=== PATIENT | male | born 1960 | race Hispanic/Latino ===

== ENCOUNTER 2017-05-19 19:01 | Inpatient (IN) | payer OTHER ==
--- NOTE | 2017-05-19 19:25 | C.PDOC ---
History Of Present Illness The patient presents to the ED requesting heroin and alcohol detox. Patient states his last heroin use was this morning and last drink was at around 1700 today. Patient denies suicidal/homicidal ideation at this time. Time Seen by Provider: 05/19/17 19:24 Chief Complaint (Nursing): Substance Abuse History Per: Patient History/Exam Limitations: no limitations Onset/Duration Of Symptoms: Hrs Current Symptoms Are (Timing): Still Present Suicide/Self Injury Attempted (Context): None Modifying Factor(s): Alcohol, Narcotics (heroin) Severity: Mild Pain Scale Rating Of: 2 Associated Symptoms: denies: Suicidal Thoughts, Suicidal Plan Involuntary Hold By: None Recent travel outside of the [place]: No Additional History Per: Patient Past Medical History Reviewed: Historical Data, Nursing Documentation, Vital Signs Vital Signs: Last Vital Signs Temp 97.6 F 05/19/17 19:17 Pulse 98 H 05/19/17 19:17 Resp 16 05/19/17 19:17 BP 117/83 05/19/17 19:17 Pulse Ox 97 05/19/17 19:51 - Medical History PMH: Anxiety, Back Problems Surgical History: No Surg Hx Family History: States: Unknown Family Hx - Social History Hx Tobacco Use: Yes Hx Alcohol Use: Yes Hx Substance Use: Yes (Heroin, Methadone) - Immunization History Hx Tetanus Toxoid Vaccination: Yes Hx Influenza Vaccination: No Hx Pneumococcal Vaccination: No Review Of Systems Constitutional: Negative for: Fever, Chills Cardiovascular: Negative for: Chest Pain, Palpitations Respiratory: Negative for: Shortness of Breath Gastrointestinal: Negative for: Nausea, Vomiting, Abdominal Pain Skin: Negative for: Rash, Lesions, Jaundice, Bruising Neurological: Negative for: Weakness, Numbness Psych: Negative for: Suicidal ideation Physical Exam - Physical Exam Appears: Non-toxic, No Acute Distress Skin: Warm, Dry Head: Normacephalic Eye(s): bilateral: Normal Inspection Oral Mucosa: Moist Neck: Supple Chest: Symmetrical, No Deformity, No Tenderness Cardiovascular: Rhythm Regular, No Murmur Respiratory: No Rales, No Rhonchi, No Wheezing Back: Normal Inspection Extremity: Normal ROM Extremity: Bilateral: Atraumatic Neurological/Psych: Oriented x3 Gait: Steady ED Course And Treatment - Laboratory Results Result Diagrams: 05/19/17 19:34 05/19/17 19:34 O2 Sat by Pulse Oximetry: 97 (on RA) Pulse Ox Interpretation: Normal Progress Note: Bloodwork and urinalysis ordered. Disposition Discussed With Dr.: Maura Hackett Comment: accepted the pt on his service and took over the care at 9:07 PM Doctor Will See Patient In The: Hospital Counseled Patient/Family Regarding: Studies Performed, Diagnosis - Disposition Disposition: HOSPITALIZED Disposition Time: 19:24 Condition: FAIR Forms: [facility] (Surinamese) - POA Present On Arrival: None - Clinical Impression Clinical Impression: Alcohol abuse, Drug dependence - Scribe Statement The provider has reviewed the documentation as recorded by the Scribe (Brissa Feng) Provider Attestation: All medical record entries made by the Scribe were at my direction and personally dictated by me. I have reviewed the chart and agree that the record accurately reflects my personal performance of the history, physical exam, medical decision making, and the department course for this patient. I have also personally directed, reviewed, and agree with the discharge instructions and disposition. Decision To Admit - Pt Status Changed To: Hospital Disposition Of: Inpatient - Admit Certification Admit to Inpatient:: After my assessment, the patient will require hospitalization for at least two midnights. This is because of the severity of symptoms shown, intensity of services needed, and/or the medical risk in this patient being treated as an outpatient. - InPatient: Physician Admission Certification: I certify that this patient requires 2 or more midnights of care for the following reason:: After my assessment, the patient will require hospitalization for at least two midnights. This is because of the severity of symptoms shown, intensity of services needed, and/or the medical risk in this patient being treated as an outpatient. - . Bed Request Type: Detox Admitting Physician: Maura Hackett Patient Diagnosis: Alcohol abuse, Drug dependence
[2017-05-19 19:48] LABS: BASO # 0.1 K/uL (0.0-0.2); BASO % 1.1 % (0.0-2.0); EOS # 0.5 K/uL (0.0-0.7); EOS % 3.6 % (0.0-4.0); HEMATOCRIT 42.9 % (35.0-51.0); LYMPH % 30.8 % (20.0-40.0); MEAN CORPUSCULAR HEMOGLOBIN 33.3 pg (27.0-31.0); MEAN CORPUSCULAR HGB CONC 33.3 g/dL (33.0-37.0); MEAN PLATELET VOLUME 8.8 fL (7.2-11.7); MONO # 1.1 K/uL (0.0-0.8); MONO % 8.6 % (0.0-10.0); RED CELL DISTRIBUTION WIDTH 13.4 % (11.5-14.5); WHITE BLOOD COUNT 12.9 K/uL (4.8-10.8)
[2017-05-19 19:50] LABS: ALB/GLOB RATIO 1.5 (1.0-2.1); ALCOHOL SERUM 78 mg/dl (0-10); ALKALINE PHOSPHATASE 56 U/L (38-126); ALT/SGPT 235 U/L (21-72); AST/SGOT 122 U/L (17-59); BILIRUBIN,TOTAL 0.6 mg/dL (0.2-1.3); BLOOD UREA NITROGEN 9 mg/dL (9-20); CALCIUM 8.2 mg/dl (8.6-10.4); CARBON DIOXIDE 29 mmol/L (22-30); CHLORIDE 104 mmol/L (98-107); GFR AFRICAN-AMERICAN > 60; GLUCOSE,RANDOM 131 mg/dL (75-110); SODIUM 142 mmol/L (132-148); TOTAL PROTEIN 7.4 g/dL (6.3-8.3)
[2017-05-19 20:29] LABS: RBC URINE < 1 /hpf (0-3); URINE BILIRUBIN NEGATIVE (NEGATIVE); URINE BLOOD NEGATIVE (NEGATIVE); URINE COLOR Yellow (YELLOW); URINE GLUCOSE (UA) NORMAL (Normal); URINE KETONE NEGATIVE (NEGATIVE); URINE LEUKOCYTE ESTERASE NEG Leu/uL (Negative); URINE PROTEIN NEGATIVE (NEGATIVE); URINE UROBILINOGEN NORMAL mg/dL (0.2-1.0); WBC URINE 1 /hpf (0-5)
[2017-05-19] MEDS ORDERED: Aluminum Hydroxide/Magnesium Hydroxide Susp (30 mL) PO PRN (21:33)
[2017-05-20] MEDS: Multiple Vitamins Tab PO SCH (09:27)
--- NOTE | 2017-05-20 14:09 | PCM.PSYCH ---
Initial Psychiatric Evaluation - Initial Psychiatric Evaluation Type of Admission: Voluntary Legal Status: Capacity Chief Complaint (in patient's own words): "I had to stop this" History of Present Illness and Precipitating Events: The patient is seen, chart reviewed and case discussed. This is a 56-year-old male, single with no child, unemployed last 7 months, he gets unemployment money at this point. The patient drinks 2 packs of beer and a pint of liquor for the last 4 years. Denies DTs or seizures He also uses up to 5 bags of heroin "on and off" intranasally for the last 32 years. He says he tried methadone in the past and recently to come off he took some "sips of methadone" He was on 90 mg of methadone at [facility] up until 4 years ago. He was using cocaine but stopped recently Smokes half pack per day cigarettes Denies all other drugs. He was in detox 7 times and rehabilitation 2 times. Past psych history: He states he had anxiety all his life and still suffers from anxiety. No admissions or suicide attempts Family psych history: Mother had anxiety and depression Medical history: Denies Current Medications: Active Medications Generic Name Dose Route Start Last Admin Trade Name Freq PRN Reason Stop Dose Admin Acetaminophen 650 mg 05/19/17 21:33 Tylenol 325mg Tab PO Q4H PRN Fever greater than 101 F Al Hydrox/Mg Hydrox/Simethicone 30 ml 05/19/17 21:33 Maalox 30 Ml PO TID PRN Indigestion / Heartburn Clonidine HCl 0.1 mg 05/19/17 21:33 05/19/17 22:56 Catapres PO 0.1 mg Q8 PRN Administration COWS Score More or Equal to 5 Folic Acid 1 mg 05/20/17 10:00 05/20/17 09:27 Folic Acid PO Not Given DAILY KALLI Gabapentin 100 mg 05/20/17 10:00 05/20/17 09:28 Neurontin PO Not Given TID KALLI Hydroxyzine HCl 25 mg 05/19/17 22:26 05/19/17 22:57 Atarax PO 25 mg Q6 PRN Administration Anxiety Loperamide HCl 2 mg 05/19/17 21:33 Imodium PO Q8 PRN Diarrhea Lorazepam 1 mg 05/19/17 21:45 05/20/17 12:35 Ativan PO 05/24/17 21:44 1 mg Q4 KALLI Administration Taper Lorazepam 1 mg 05/19/17 21:34 Ativan PO Q4H PRN Symptoms of alcohol withdrawl Multivitamins 1 tab 05/20/17 10:00 05/20/17 09:27 Hexavitamin PO Not Given DAILY KALLI Ondansetron HCl 4 mg 05/19/17 21:33 Zofran Tab PO Q8 PRN Nausea/Vomiting Thiamine HCl 100 mg 05/20/17 10:00 05/20/17 09:28 Vitamin B1 Tab PO Not Given DAILY KALLI Trazodone HCl 50 mg 05/19/17 21:34 05/19/17 22:57 Desyrel PO 50 mg HS PRN Administration Insomnia Past Psychiatric History - Past Psychiatric History Previous Treatment History: None Pertinent Medical Hx (Current Medical&Sleep Prob, Allergies): Allergies Allergy/AdvReac Type Severity Reaction Status Date / Time No Known Allergies Allergy Verified 05/19/17 19:15 No Known Home Med 05/19/17 Review of Systems - Neurological Neurological: UNREMARKABLE - Psychiatric Psychiatric: Abnormal Sleep Pattern, Anxiety. absent: Depression, Difficulty Concentrating, Hallucinations, Suicidal Ideation Mental Status Examination - Personal Presentation Personal Presentation: Looks stated age - Affect Affect: Constricted - Motor Activity Motor Activity: Calm - Reliability in Providing Information Reliability in Providing Information: Good - Speech Speech: Organized - Mood Mood: Anxious - Formal Thought Process Formal Thought Process: No Impairment - Cognitive Functions Orientation: Person, Place, Situation, Time Attention/Concentration: Attentive Estimate of Intelligence: Average Judgement: Intact, as evidence by: Insight regarding need for hospitalization Memory: Recent intact, as evidence by: Ability to recall events of the day, Remote intact, as evidenced by: Abilit to recall sig. life events - Risk Risk: Withdrawal, Diminished functioning - Strength & Assets Inventory Strength & Assets Inventory: Cooperative DSM 5 DX - DSM 5 DSM 5 Diagnosis: Opioid withdrawal Opioid use d/o - severe Alcohol use d/o -severe Alcohol withdrawal Cocaine use d/o- in early remission Tobacco use d/o - moderate Anxiety d/o - unspecified - Recommended/Plan of Treatment Treatment Recommendations and Plan of Treatment: Ativan detox due to elevated LFTs Subutex detox if he scores higher Gabapentin for augmentation As needed medications Attend groups and activities Supportive therapy and psychoeducation [facility] for abstinence CBT for relapse prevention Encourage MAT Refer to rehab or IOP, and self-help groups Smoking cessation with [facility] Nicotine patch 34 min Projected ELOS: 5 days Prognosis: good w treatment - Smoking Cessation Smoking Cessation Initiated: Yes
--- NOTE | 2017-05-20 14:58 | PCM.BM ---
<JuarezNardaJessie F - Last Filed: 05/20/17 14:54> Treatment Plan Problems - Problems identified on initial assessmt Risk for alcohol use disorder Date Initiated: 05/19/17 Time Initiated: 22:00 Assessment reference: NA Status: Active Risk for opioid use disorder Date Initiated: 05/19/17 Time Initiated: 22:00 Assessment reference: NA Status: Active Treatment assets and liabiliti Patient Assests: self-reliant, ADL independent, negotiates basic needs, cognitively intact Patient Liabilities: financial problems, relationship conflicts, substance abuse - Milieu Protocol Maintain good personal hygiene: daily Encourage regular showers, daily Remind patient to perform daily oral care, daily Assist patient to perform ADL's, every shift Encourage regular showers, every shift Remind patient to perform daily oral care, every shift Assist patient to perform ADL's Maintain personal safety: daily Educate patient to report safety concerns to staff, daily Monitor environment for contraband/sharps, every shift Educate patient to report safety concerns to staff, every shift Monitor environment for contraband/sharps Medication safety: Monitor for expected outcome, potential side effects: daily, every shift, Assess barriers to learning: daily, every shift, Assess readiness for medication education: daily, every shift Milieu Narrative: Ativan detox due to elevated LFTs Subutex detox if he scores higher Gabapentin for augmentation As needed medications Attend groups and activities Supportive therapy and psychoeducation [facility] for abstinence CBT for relapse prevention Encourage MAT Refer to rehab or IOP, and self-help groups Smoking cessation with [facility] Nicotine patch 34 min Family Contact Family involvement: Famliy/SO not involved Discharge/Continuing Care - Treatment Team Participation Patient/Family/SO Statement: Ativan detox due to elevated LFTs Subutex detox if he scores higher Gabapentin for augmentation As needed medications Attend groups and activities Supportive therapy and psychoeducation [facility] for abstinence CBT for relapse prevention Encourage MAT Refer to rehab or IOP, and self-help groups Smoking cessation with [facility] Nicotine patch 34 min <Marivel Guzman - Last Filed: 05/21/17 10:32> - Diagnosis (1) Alcohol use disorder, severe, dependence Status: Acute Interventions: 05/21/17 10:32 * Assess 7x/week regarding severity of withdrawal * Educate regarding risks, benefits, side effects and alternatives of medications * Use Motivational Interviewing for abstinence * Use CBT for relapse prevention * Medication management for withdrawal symptoms * Encourage medication assisted treatment *
[2017-05-20 20:58] VITALS: RESP 18
[2017-05-21 09:53] VITALS: BP 121/91; PULSE 108; TEMP 97.9; O2SAT 98
--- NOTE | 2017-05-21 10:08 | PCM.PYCHDC ---
Mental Status Examination - Mental Status Examination Orientation: Person, Place, Situation, Time Memory: Intact Mood: Anxious Affect: Constricted Speech: Appropriate Attention: Poor Concentration: Poor Association: WNL Fund of Knowledge: WNL Formal Thought Process: No Impairment Suicidal Ideation: No Current Homicidal Ideation?: No Discharge Summary - Discharge Note Consultations:: List each consultation separately and include: 1. Reason for request. 2. Findings. 3. Follow-up Summary of Hospital Course include:: 1. Description of specific treatment plan utilized for patients during their course of treatmen. 2. Summarize the time- course for resolution of acute symptoms and/or regressed behaviors. 3. Describe issues identified and worked on during hospitalization. 4. Describe medication utilized. 5. Describe medical problems identified and treated. 6. Reassessment of suicide risk Summary of Hospital Course: The patient is seen, chart reviewed and case discussed. On admission: This is a 56-year-old male, single with no child, unemployed last 7 months, he gets unemployment money at this point. The patient drinks 2 packs of beer and a pint of liquor for the last 4 years. Denies DTs or seizures He also uses up to 5 bags of heroin "on and off" intranasally for the last 32 years. He says he tried methadone in the past and recently to come off he took some "sips of methadone" He was on 90 mg of methadone at [facility] up until 4 years ago. He was using cocaine but stopped recently Smokes half pack per day cigarettes Denies all other drugs. He was in detox 7 times and rehabilitation 2 times. Past psych history: He states he had anxiety all his life and still suffers from anxiety. No admissions or suicide attempts Family psych history: Mother had anxiety and depression Medical history: Denies Hospital course: The pt was admitted and started on treatment with psychotherapy, support, psychoeducation and medications. VT and CBT used briefly. All the risks and benefits of medications are discussed and the patient understood and agreed. The pt was found to be smoking the next morning and discharged administratively. He first denied it but then his room-mate who smoked together admitted. They even pried open the room window a little. He is given recommendations about how to stay clean and go to [facility] (or other rehabs) He refused prescriptions (and doesn't have insurance) - Final Diagnosis (DSM 5) Condition upon Discharge: FAIR DSM 5: Opioid withdrawal Opioid use d/o - severe Alcohol use d/o -severe Alcohol withdrawal Cocaine use d/o- in early remission Tobacco use d/o - moderate Anxiety d/o - unspecified Disposition: HOME/ ROUTINE Follow-up Treatment Plan: Follow after care plan as discussed. Use relapse prevention skills Return to ER or call 911 if suicidal, homicidal or symptoms relapse. Stay away from stress, alcohol and drugs. See primary doctor regularly and get labs.
[2017-05-21] MEDS: Multiple Vitamins Tab PO SCH (10:25)
== END 2017-05-21 10:35 | disposition home or self-care (01) | DRG 895 ==
LOC: C.ER 19:01 → C.7D 21:06
PROVIDERS: ADMIT Psychiatry & Neurology Psychiatry; ATTEND Psychiatry & Neurology Psychiatry
PROC: HZ52ZZZ Individual Psychotherapy for Substance Abuse Treatment, Cognitive-Behavioral (ICD-10-PCS; principal; 2017-05-19)
PROC: HZ59ZZZ Individual Psychotherapy for Substance Abuse Treatment, Supportive (ICD-10-PCS; 2017-05-19)
PROC: HZ56ZZZ Individual Psychotherapy for Substance Abuse Treatment, Psychoeducation (ICD-10-PCS; 2017-05-19)
PROC: HZ2ZZZZ Detoxification Services for Substance Abuse Treatment (ICD-10-PCS; 2017-05-19)
DX: F11.23 Opioid dependence with withdrawal (principal); F10.230 Alcohol dependence with withdrawal, uncomplicated; F17.210 Nicotine dependence, cigarettes, uncomplicated; F41.9 Anxiety disorder, unspecified; F14.11 Cocaine abuse, in remission

== ENCOUNTER 2018-03-09 20:41 | Observation (INO) | payer OTHER ==
[2018-03-09 21:24] VITALS: BMI 23.6
[2018-03-09] MEDS ORDERED: Sodium Chloride 0.9% 1,000 ML IV ONE (22:10)
--- NOTE | 2018-03-09 22:20 | C.PDOC ---
History Of Present Illness 57 year old male presents to the ED c/o right flank pain that started tonight. Patient states his pain is persistent and does not change with movement or deep breathing. Patient denies fever, chills, nausea, vomit, diarrhea, dysuria, hematuria. Chief Complaint (Nursing): Abdominal Pain History Per: Patient History/Exam Limitations: no limitations Onset/Duration Of Symptoms: Hrs Current Symptoms Are (Timing): Still Present Location Of Pain/Discomfort: Diffuse Radiation Of Pain To:: Flank Quality Of Discomfort: "Pain" Associated Symptoms: denies: Nausea, Vomiting, Diarrhea, Urinary Symptoms Exacerbating Factors: None Alleviating Factors: None Recent travel outside of the [place]: No Additional History Per: Patient Past Medical History Reviewed: Historical Data, Nursing Documentation, Vital Signs Vital Signs: Last Vital Signs Temp 97.7 F 03/09/18 20:56 Pulse 99 H 03/09/18 20:56 Resp 16 03/09/18 20:56 BP 131/85 03/09/18 20:56 Pulse Ox 98 03/09/18 20:56 - Medical History PMH: Anxiety, Back Problems Denies: Diabetes, Hepatitis, HIV, HTN, Seizures, Sexually Transmitted Disease Surgical History: No Surg Hx - [facility] DETOXIFICATION SERVICES FOR SUBSTANCE ABUSE TREATMENT (05/19/17) INDIV PSYCHOTHERAPY FOR SUBSTANCE ABUSE TREATMENT, SUPPORT (05/19/17) INDIV PSYCHOTHERAPY FOR SUBSTANCE ABUSE, COGNITIV BEHAVIORAL (05/19/17) INDIV PSYCHOTHERAPY FOR SUBSTANCE ABUSE, PSYCHOEDUCATION (05/19/17) Family History: States: Unknown Family Hx - Social History Hx Tobacco Use: Yes Hx Alcohol Use: Yes Hx Substance Use: Yes - Immunization History Hx Tetanus Toxoid Vaccination: Yes Hx Influenza Vaccination: No Hx Pneumococcal Vaccination: No Review Of Systems Constitutional: Negative for: Fever, Chills Cardiovascular: Negative for: Chest Pain Respiratory: Negative for: Shortness of Breath Gastrointestinal: Negative for: Nausea, Vomiting Genitourinary: Negative for: Dysuria, Hematuria Musculoskeletal: Positive for: Back Pain Neurological: Negative for: Weakness, Numbness Physical Exam - Physical Exam Appears: Non-toxic, No Acute Distress Skin: Normal Color, Warm, Dry Head: Atraumatic, Normacephalic Eye(s): bilateral: Normal Inspection Oral Mucosa: Moist Neck: Normal ROM, Supple Chest: Symmetrical Cardiovascular: Rhythm Regular Respiratory: Normal Breath Sounds, No Rales, No Rhonchi, No Wheezing Gastrointestinal/Abdominal: Soft, No Tenderness, No Guarding, No Rebound Back: CVA Tenderness (right) Extremity: Normal ROM, No Tenderness, No Swelling Neurological/Psych: Oriented x3, Normal Speech, Normal Cognition Gait: Steady ED Course And Treatment - Laboratory Results Result Diagrams: 03/09/18 22:33 03/09/18 22:33 O2 Sat by Pulse Oximetry: 98 (ON RA) Pulse Ox Interpretation: Normal - CT Scan/US CT abd/pelvis Other Rad Studies (CT/US): Read By Radiologist, Radiology Report Reviewed CT/US Interpretation: CT SCAN OF THE ABDOMEN AND PELVIS WITH CONTRAST. CLINICAL HISTORY: Abdominal pain. TECHNIQUE: Multiple axial and coronal CT images were obtained through the abdomen and pelvis after administration of intravenous contrast material. COMMENTS: Fluid filled the small bowels in the left lower quadrant. The liver is of uniform attenuation without mass or defect. There is no intra or extrahepatic biliary ductal dilatation. The spleen is normal. The gallbladder is within normal limits. The pancreas is of normal contour and attenuation characteristics. There is no evidence of adrenal mass. Uncomplicated colonic diverticulosis. Both kidneys demonstrate prompt and equal nephrograms. The kidneys are normal in size, shape and configuration. There is no evidence of renal or ureteral mass. No renal or ureteral calculi are identified. There is no hydroureter or hydronephrosis. No evidence for appendicitis. There is no bowel wall thickening. No evidence for small or large bowel obstruction. There is no evidence of abdominal ascites or lymphadenopathy. There is no evidence of intrinsic or extrinsic bladder mass. There is no pelvic ascites or lymphadenopathy. Images of the lung bases show no evidence of pleural or parenchymal mass. There are no pleural effusions. The bony structures are free of lytic or blastic lesions. IMPRESSION: Fluid filled small bowel to the left lower quadrant. Nonspecific finding. Probably mild ileus. Thank you for your kind referral of this patient. . Electronically signed on Mar 10, 2018 12:42:51 AM EDT by: Ismael Wyatt M.D., Certified by ABR, MSK, Neuroradiology Medical Decision Making Medical Decision Making: Plan: * CT abd/pelvis * Labs * IV fluids * Toradol 30 mg IVP * UA Disposition Discussed With : Parish Tijerina Doctor Will See Patient In The: Hospital Counseled Patient/Family Regarding: Diagnosis - Disposition Disposition: HOSPITALIZED Disposition Time: 01:21 Condition: STABLE Forms: [facility] (Portuguese) - POA Present On Arrival: None - Clinical Impression Clinical Impression: Abdominal pain, Ileus - Scribe Statement The provider has reviewed the documentation as recorded by the Scribe Edinson Smith All medical record entries made by the Scribe were at my direction and personally dictated by me. I have reviewed the chart and agree that the record accurately reflects my personal performance of the history, physical exam, me dical decision making, and the department course for this patient. I have also personally directed, reviewed, and agree with the discharge instructions and disposition.
[2018-03-09 22:38] LABS: BASO # 0.1 K/uL (0.0-0.2); BASO % 1.3 % (0.0-2.0); EOS # 0.3 K/uL (0.0-0.7); HEMOGLOBIN 14.7 g/dL (12.0-18.0); LYMPH # 3.9 K/uL (1.0-4.3); LYMPH % 34.3 % (20.0-40.0); MEAN CELL VOLUME 99.3 fL (80.0-94.0); MEAN CORPUSCULAR HEMOGLOBIN 33.4 pg (27.0-31.0); MEAN CORPUSCULAR HGB CONC 33.7 g/dL (33.0-37.0); MEAN PLATELET VOLUME 8.6 fL (7.2-11.7); MONO % 8.3 % (0.0-10.0); NEUT # 6.1 K/uL (1.8-7.0); NEUT % 53.1 % (50.0-75.0); NRBC % 0.1 % (0.0-2.0); RBC 4.39 Mil/uL (4.40-5.90); RED CELL DISTRIBUTION WIDTH 13.9 % (11.5-14.5); WHITE BLOOD COUNT 11.5 K/uL (4.8-10.8)
[2018-03-09 22:41] LABS: URINE BILIRUBIN NEGATIVE (NEGATIVE); URINE BLOOD NEGATIVE (NEGATIVE); URINE CLARITY Clear (Clear); URINE COLOR Yellow (YELLOW); URINE GLUCOSE (UA) NORMAL (Normal); URINE LEUKOCYTE ESTERASE NEG Leu/uL (Negative); URINE PROTEIN NEGATIVE (NEGATIVE); URINE UROBILINOGEN NORMAL mg/dL (0.2-1.0)
[2018-03-09 22:56] LABS: ALB/GLOB RATIO 1.4 (1.0-2.1); ALBUMIN 4.5 g/dL (3.5-5.0); ALT/SGPT 24 U/L (21-72); AST/SGOT 33 U/L (17-59); BLOOD UREA NITROGEN 12 mg/dL (9-20); CALCIUM 9.1 mg/dl (8.6-10.4); GFR NON-AFRICAN AMERICAN > 60; LIPASE 142 U/L (23-300)
[2018-03-09] MEDS ORDERED: Iodixanol 320 MG/ML 100 ML BOTTLE IV ONE (23:06)
[2018-03-10] MEDS: Dextrose 5%/0.45% NS 1,000 ML IV SCH ×3 (02:15→13:30)
[2018-03-10 02:52] VITALS: RESP 20
[2018-03-10] MEDS: metroNIDAZOLE IV 500 mg/100 ml 500 MG/100 ML BAG IVPB SCH ×3 (06:11→21:52)
[2018-03-10] MEDS ORDERED: Enoxaparin 40 mg Syringe SC SCH (10:00)
--- NOTE | 2018-03-10 10:06 | CT ---
Date of service: 03/09/2018 PROCEDURE: CT Abdomen and Pelvis with contrast HISTORY: left flank pain COMPARISON: None. TECHNIQUE: Intravenous contrast dose: 100 cc Visipaque 320. Radiation dose: Total exam DLP = 333.01 mGy-cm. This CT exam was performed using one or more of the following dose reduction techniques: Automated exposure control, adjustment of the mA and/or kV according to patient size, and/or use of iterative reconstruction technique. FINDINGS: LOWER THORAX: Unremarkable. LIVER: Unremarkable. No gross lesion or ductal dilatation. GALLBLADDER AND BILE DUCTS: Unremarkable. PANCREAS: Unremarkable. No gross lesion or ductal dilatation. SPLEEN: Unremarkable. ADRENALS: Unremarkable. No mass. KIDNEYS AND URETERS: Unremarkable. No hydronephrosis. No solid mass. VASCULATURE: Unremarkable. No aortic aneurysm. BOWEL: Unremarkable. No obstruction. No gross mural thickening. APPENDIX: No abnormalities to suggest acute appendicitis. No right lower quadrant inflammatory processes identified. PERITONEUM: Unremarkable. No free fluid. No free air. LYMPH NODES: Unremarkable. No enlarged lymph nodes. BLADDER: Unremarkable. REPRODUCTIVE: Unremarkable. BONES: No acute fracture. OTHER FINDINGS: None. IMPRESSION: No acute findings related to/accounting for the clinical presentation. Additional benign and/or incidental findings described above. Concordant results (preliminary interpretation) provided by [employer]. Procedure Completed: 23:54 Preliminary Report: Dictated and Authenticated: 12:42. Final Interpretation: 10:04. March 09, 2018
[2018-03-10 19:44] LABS: BARBITURATES, UR NEGATIVE (NEGATIVE); BENZODIAZEPINES, UR NEGATIVE (NEGATIVE); OPIATES, UR NEGATIVE (NEGATIVE); PHENCYCLIDINE, UR NEGATIVE (NEGATIVE)
--- NOTE | 2018-03-10 21:58 | CP.PCM.HP ---
Past Patient History - Infectious Disease Hx of Infectious Diseases: None - Past Medical History & Family History Past Medical History?: No - Past Social History Smoking Status: Heavy Smoker > 10 Cigarettes Daily - CARDIAC Hx Hypertension: No - PULMONARY Hx Tuberculosis: No - NEUROLOGICAL Hx Seizures: No - ENDOCRINE/METABOLIC Hx Endocrine Disorders: No - HEMATOLOGICAL/ONCOLOGICAL Hx Human Immunodeficiency Virus (HIV): No - MUSCULOSKELETAL/RHEUMATOLOGICAL Hx Falls: No - GENITOURINARY/GYNECOLOGICAL Hx Sexually Transmitted Disorders: No - PSYCHIATRIC Hx Anxiety: Yes Hx Substance Use: Yes - SURGICAL HISTORY Hx Surgeries: Yes Hx Musculoskeletal Surgery: Yes Other/Comment: knee sx, torn cartilage - ANESTHESIA Hx Anesthesia: Yes Hx Anesthesia Reactions: No Meds Allergies/Adverse Reactions: Allergies Allergy/AdvReac Type Severity Reaction Status Date / Time No Known Allergies Allergy Verified 05/19/17 19:15 Results - Vital Signs Recent Vital Signs: Last Vital Signs Temp 97.2 F L 03/10/18 15:00 Pulse 82 03/10/18 15:00 Resp 20 03/10/18 15:00 BP 139/88 03/10/18 15:00 Pulse Ox 96 03/10/18 15:00 - Labs Result Diagrams: 03/09/18 22:33 03/09/18 22:33 Labs: Laboratory Results - last 24 hr 03/09/18 03/09/18 03/09/18 22:33 22:33 22:33 WBC 11.5 H RBC 4.39 L Hgb 14.7 Hct 43.5 MCV 99.3 H MCH 33.4 H MCHC 33.7 RDW 13.9 Plt Count 264 MPV 8.6 Neut % (Auto) 53.1 Lymph % (Auto) 34.3 [place] % (Auto) 8.3 Eos % (Auto) 3.0 Baso % (Auto) 1.3 Neut # (Auto) 6.1 Lymph # (Auto) 3.9 [place] # (Auto) 1.0 H Eos # (Auto) 0.3 Baso # (Auto) 0.1 Sodium 145 Potassium 3.9 Chloride 107 Carbon Dioxide 26 Anion Gap 17 BUN 12 Creatinine 0.7 L Est GFR ( Amer) > 60 Est GFR (Non-Af Amer) > 60 Random Glucose 94 Calcium 9.1 Total Bilirubin 0.5 AST 33 ALT 24 Alkaline Phosphatase 77 Total Protein 7.8 Albumin 4.5 Globulin 3.3 Albumin/Globulin Ratio 1.4 Lipase 142 Urine Color Yellow Urine Clarity Clear Urine pH 5.0 Ur Specific [place] 1.019 Urine Protein Negative Urine Glucose (UA) Normal Urine Ketones Negative Urine Blood Negative Urine Nitrate Negative Urine Bilirubin Negative Urine Urobilinogen Normal Ur Leukocyte Esterase Neg Urine WBC (Auto) < 1 Urine RBC (Auto) < 1 Urine Opiates Screen Urine Methadone Screen Ur Barbiturates Screen Ur Phencyclidine Scrn Ur Amphetamines Screen U Benzodiazepines Scrn U Oth Cocaine Metabols U Cannabinoids Screen Alcohol, Quantitative 03/10/18 03/10/18 16:50 19:18 WBC RBC Hgb Hct MCV MCH MCHC RDW Plt Count MPV Neut % (Auto) Lymph % (Auto) [place] % (Auto) Eos % (Auto) Baso % (Auto) Neut # (Auto) Lymph # (Auto) [place] # (Auto) Eos # (Auto) Baso # (Auto) Sodium Potassium Chloride Carbon Dioxide Anion Gap BUN Creatinine Est GFR ( Amer) Est GFR (Non-Af Amer) Random Glucose Calcium Total Bilirubin AST ALT Alkaline Phosphatase Total Protein Albumin Globulin Albumin/Globulin Ratio Lipase Urine Color Urine Clarity Urine pH Ur Specific [place] Urine Protein Urine Glucose (UA) Urine Ketones Urine Blood Urine Nitrate Urine Bilirubin Urine Urobilinogen Ur Leukocyte Esterase Urine WBC (Auto) Urine RBC (Auto) Urine Opiates Screen Negative Urine Methadone Screen Negative Ur Barbiturates Screen Negative Ur Phencyclidine Scrn Negative Ur Amphetamines Screen Negative U Benzodiazepines Scrn Negative U Oth Cocaine Metabols Negative U Cannabinoids Screen Negative Alcohol, Quantitative < 10
[2018-03-11] MEDS: Dextrose 5%/0.45% NS 1,000 ML IV SCH (00:29)
[2018-03-11] MEDS: metroNIDAZOLE IV 500 mg/100 ml 500 MG/100 ML BAG IVPB SCH (05:33)
[2018-03-11 08:18] VITALS: BP 120/81; PULSE 81; TEMP 97.8; O2SAT 97
--- NOTE | 2018-03-11 08:50 | HP ---
CHIEF COMPLAINT: Right upper quadrant abdominal pain. HISTORY OF PRESENT ILLNESS: This is a 57-year-old white male. He smokes, and he drinks. He denies any substance abuse. 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 The patient is in his usual state of health. He is ambulatory, and independent in activities of daily living. He drinks. At present, came in because for last three days, he has been having right upper quadrant pain around right flank area going to the back, associated with nausea. No vomiting. No diarrhea. The patient denies any fever or chills. The patient denies dysuria, hematuria, or pyuria. He denies any history of frequency of urination. He denies any history of polyuria, polydipsia, or polyphagia. He denies any history of cough, sore throat, or runny nose. He denies any sneezing. He denies any history of bruising. He denies any history of knee pain or hip pain. He denies any history of rash. SOCIAL HISTORY: He smokes. He drinks. He denies drugs. FAMILY HISTORY: Noncontributory. CURRENT MEDICATIONS: At home, the patient is not on any medications. ALLERGIES: UNKNOWN ALLERGIES. PHYSICAL EXAMINATION: GENERAL: A middle-aged male in no acute distress. VITAL SIGNS: Blood pressure 144/84, pulse 89, respiratory rate 20, and temperature 97.2. SKIN: Flushed. No bruises. No purpura. No petechiae. HEENT: Atraumatic and normocephalic. Negative pallor. Negative jaundice. Extraocular movements are intact. NECK: Supple. No JVD. No lymph node. No thyromegaly. No carotid bruit. CHEST WALL: Bilaterally symmetrical expansion. No masses. LUNGS: Bilaterally clear. No rales. No rhonchi. CVS: PMI not localized. S1 and S2 regular. No heave. No thrill. ABDOMEN: Soft and nontender. Bowel sounds are positive. No masses. No guarding. No tenderness. No rigidity. No visible peristalsis. RECTAL: Negative. EXTREMITIES: No clubbing, cyanosis, or edema. HEEL SEAT FITTER MACHINE: Awake, alert, and oriented x3. ASSESSMENT: 1. Right upper quadrant pain, could be costochondritis, could be right lower lobe pneumonia, could be due to hepatitis C, could be gastritis versus peptic ulcer disease. 2. Dehydration. PLAN: Admit. Detailed orders written. Seen and examined. Parish Tijerina MD
--- NOTE | 2018-03-11 23:41 | CP.PCM.DIS ---
Provider - Provider Date of Admission: 03/10/18 01:35 Attending physician: Parish Tijerina MD Hospital Course - Lab Results Lab Results: Most Recent Lab Values WBC 11.5 K/uL (4.8-10.8) H 03/09/18 22:33 RBC 4.39 Mil/uL (4.40-5.90) L 03/09/18 22: Hgb 14.7 g/dL (12.0-18.0) 03/09/18 22:33 Hct 43.5 % (35.0-51.0) 03/09/18 22:33 MCV 99.3 fL (80.0-94.0) H 03/09/18 22: MCH 33.4 pg (27.0-31.0) H 03/09/18: MCHC 33.7 g/dL (33.0-37.0) 03/09/18: RDW 13.9 % (11.5-14.5) 03/09/18: Plt Count 264 K/uL (130-400) 03/09/18: MPV 8.6 fL (7.2-11.7) 03/09/18 22:33 Neut % (Auto) 53.1 % (50.0-75.0) 03/09/18 22:33 Lymph % (Auto) 34.3 % (20.0-40.0) 03/09/18 22:33 [place] % (Auto) 8.3 % (0.0-10.0) 03/09/18: Eos % (Auto) 3.0 % (0.0-4.0) 03/09/18:33 Baso % (Auto) 1.3 % (0.0-2.0) 03/09/18:33 Neut # (Auto) 6.1 K/uL (1.8-7.0) 03/09/18: Lymph # (Auto) 3.9 K/uL (1.0-4.3) 03/09/18 22:33 [place] # (Auto) 1.0 K/uL (0.0-0.8) H 03/09/18:33 Eos # (Auto) 0.3 K/uL (0.0-0.7) 03/09/18 22:33 Baso # (Auto) 0.1 K/uL (0.0-0.2) 03/09/18 22:33 Sodium 145 mmol/L (132-148) 03/09/18 22:33 Potassium 3.9 mmol/L (3.6-5.2) 03/09/18 22:33 Chloride 107 mmol/L (98-107) 03/09/18 22:33 Carbon Dioxide 26 mmol/L (22-30) 03/09/18 22:33 Anion Gap 17 (10-20) 03/09/18 22:33 BUN 12 mg/dL (9-20) 03/09/18 22:33 Creatinine 0.7 mg/dL (0.8-1.5) L 03/09/18 22:33 Est GFR ( Amer) > 60 03/09/18 22:33 Est GFR (Non-Af Amer) > 60 03/09/18 22:33 Random Glucose 94 mg/dL (75-110) 03/09/18 22:33 Calcium 9.1 mg/dl (8.6-10.4) 03/09/18 22:33 Total Bilirubin 0.5 mg/dL (0.2-1.3) 03/09/18 22:33 AST 33 U/L (17-59) 03/09/18 22:33 ALT 24 U/L (21-72) 03/09/18 22:33 Alkaline Phosphatase 77 U/L (38-126) 03/09/18 22:33 Total Protein 7.8 g/dL (6.3-8.3) 03/09/18 22:33 Albumin 4.5 g/dL (3.5-5.0) 03/09/18 22:33 Globulin 3.3 gm/dL (2.2-3.9) 03/09/18 22:33 Albumin/Globulin Ratio 1.4 (1.0-2.1) 03/09/18 22:33 Lipase 142 U/L (23-300) 03/09/18 22:33 Urine Color Yellow (YELLOW) 03/09/18 22:33 Urine Clarity Clear (Clear) 03/09/18 22:33 Urine pH 5.0 (5.0-8.0) 03/09/18 22:33 Ur Specific [place] 1.019 (1.003-1.030) 03/09/18 22:33 Urine Protein Negative mg/dL (NEGATIVE) 03/09/18 22:33 Urine Glucose (UA) Normal mg/dL (Normal) 03/09/18 22:33 Urine Ketones Negative mg/dL (NEGATIVE) 03/09/18 22:33 Urine Blood Negative (NEGATIVE) 03/09/18 22:33 Urine Nitrate Negative (NEGATIVE) 03/09/18 22:33 Urine Bilirubin Negative (NEGATIVE) 03/09/18 22:33 Urine Urobilinogen Normal mg/dL (0.2-1.0) 03/09/18 22:33 Ur Leukocyte Esterase Neg [place]/uL (Negative) 03/09/18 22:33 Urine WBC (Auto) < 1 /hpf (0-5) 03/09/18 22:33 Urine RBC (Auto) < 1 /hpf (0-3) 03/09/18 22:33 Urine Opiates Screen Negative (NEGATIVE) 03/10/18 19:18 Urine Methadone Screen Negative (NEGATIVE) 03/10/18 19:18 Ur Barbiturates Screen Negative (NEGATIVE) 03/10/18 19:18 Ur Phencyclidine Scrn Negative (NEGATIVE) 03/10/18 19:18 Ur Amphetamines Screen Negative (NEGATIVE) 03/10/18 19:18 U Benzodiazepines Scrn Negative (NEGATIVE) 03/10/18 19:18 U Oth Cocaine Metabols Negative (NEGATIVE) 03/10/18 19:18 U Cannabinoids Screen Negative (NEGATIVE) 03/10/18 19:18 Alcohol, Quantitative < 10 mg/dl (0-10) 03/10/18 16:50 Discharge Plan - Follow Up Plan Condition: STABLE Disposition: AGAINST MEDICAL ADVICE
--- NOTE | 2018-03-14 09:01 | DS ---
ADMISSION DIAGNOSIS: Abdominal pain. DISCHARGE DIAGNOSIS: Abdominal pain, etiology unknown. This is a 57-year-old male with a history of hepatitis C which was treated, and he was stabilized and has been doing well. He developed right upper quadrant abdominal pain radiating posteriorly. The patient underwent a CT of abdomen and pelvis with IV and oral contrast, and the CAT scan was essentially negative for any acute pathology. The patient was under treatment. GI evaluation was called in. While workup was in progress, the patient absconded and he left the floor. Parish Tijerina MD
== END 2018-03-11 12:00 | disposition left against medical advice (07) ==
LOC: C.ER 20:41 → C.5S 03-10 01:35
PROVIDERS: ADMIT Internal Medicine; ATTEND Internal Medicine
DX: K56.7 Ileus, unspecified (principal); F17.200 Nicotine dependence, unspecified, uncomplicated; E86.0 Dehydration; Z53.21 Procedure and treatment not carried out due to patient leaving prior to being seen by health care provider
CPT/HCPCS: 36415; 74177; 80053; 80320; 80324; 80345; 80346; 80349; 80353; 80358; 80361; 81001; 83690; 83992; 85025; 96361; 96365; 96366; 96372; 96375; 96376; 99285; G0378; J0696; J1650; J1885; J2270; J7030; J7042; Q9967

== ENCOUNTER 2018-04-21 12:22 | Inpatient (IN) | payer OTHER ==
[2018-04-21 12:22] VITALS: BMI 23.6
--- NOTE | 2018-04-21 13:34 | C.PDOC ---
History Of Present Illness 57 y/o male presents to ED requesting detox from ETOH and heroin and with complaints of withdrawing from substances. Patient states last drink was this morning and denies SI/HI, auditory or visual hallucinations. No other complaints at this time. Time Seen by Provider: 04/21/18 13:03 Chief Complaint (Nursing): Substance Abuse History Per: Patient History/Exam Limitations: no limitations Onset/Duration Of Symptoms: Days Current Symptoms Are (Timing): Still Present Suicide/Self Injury Attempted (Context): None Modifying Factor(s): Alcohol Past Medical History Reviewed: Historical Data, Nursing Documentation, Vital Signs Vital Signs: Last Vital Signs Temp 97.8 F 04/21/18 12:34 Pulse 100 H 04/21/18 12:34 Resp 20 04/21/18 12:34 BP 110/70 04/21/18 12:34 Pulse Ox 97 04/21/18 12:34 - Medical History PMH: Anxiety, Back Problems Surgical History: No Surg Hx - [facility] DETOXIFICATION SERVICES FOR SUBSTANCE ABUSE TREATMENT (05/19/17) INDIV PSYCHOTHERAPY FOR SUBSTANCE ABUSE TREATMENT, SUPPORT (05/19/17) INDIV PSYCHOTHERAPY FOR SUBSTANCE ABUSE, COGNITIV BEHAVIORAL (05/19/17) INDIV PSYCHOTHERAPY FOR SUBSTANCE ABUSE, PSYCHOEDUCATION (05/19/17) Family History: States: No Known Family Hx - Social History Hx Tobacco Use: Yes Hx Alcohol Use: Yes Hx Substance Use: Yes - Immunization History Hx Tetanus Toxoid Vaccination: Yes Hx Influenza Vaccination: No Hx Pneumococcal Vaccination: No Review Of Systems Constitutional: Negative for: Fever, Chills Cardiovascular: Negative for: Chest Pain Respiratory: Negative for: Cough, Shortness of Breath Gastrointestinal: Negative for: Nausea, Vomiting Musculoskeletal: Negative for: Arm Pain Psych: Positive for: Withdrawal, Other (substance abuse). Negative for: Suicidal ideation Physical Exam - Physical Exam Appears: Non-toxic, No Acute Distress, Other (sleepy but arousable to voice) Skin: Warm, Dry, No Rash Head: Atraumatic, Normacephalic Eye(s): bilateral: Normal Inspection Oral Mucosa: Moist Neck: Normal ROM, Supple Cardiovascular: Rhythm Regular Respiratory: Normal Breath Sounds, No Rales, No Rhonchi, No Wheezing Gastrointestinal/Abdominal: Soft, No Tenderness, No Guarding, No Rebound Extremity: Normal ROM, Capillary Refill (<2 seconds) Neurological/Psych: Oriented x3, Normal Speech, Normal Cognition, Other (no acute intox) ED Course And Treatment - Laboratory Results Result Diagrams: 04/21/18 14:29 04/21/18 14:29 O2 Sat by Pulse Oximetry: 97 (RA) Pulse Ox Interpretation: Normal Reevaluation Time: 17:08 Reassessment Condition: Improved (MED CLEAR FOR DETOX. CRISIS NOTIFIED) - Physician Consult Information Time Consulting Physician Contacted: 17:09 Physician Contacted: Seble Bello Disposition Counseled Patient/Family Regarding: Studies Performed, Diagnosis - Disposition Disposition: HOSPITALIZED Disposition Time: 17:09 Condition: SERIOUS Forms: [facility] (Syrian) - POA Present On Arrival: None - Clinical Impression Clinical Impression: Alcohol abuse, Opiate abuse, continuous - Scribe Statement The provider has reviewed the documentation as recorded by the Scribbobby Rosas All medical record entries made by the Scribe were at my direction and personally dictated by me. I have reviewed the chart and agree that the record accurately reflects my personal performance of the history, physical exam, medical decision making, and the department course for this patient. I have also personally directed, reviewed, and agree with the discharge instructions and disposition.
[2018-04-21 14:35] LABS: BASO # 0.1 K/uL (0.0-0.2); BASO % 0.8 % (0.0-2.0); EOS # 0.1 K/uL (0.0-0.7); EOS % 0.5 % (0.0-4.0); HEMOGLOBIN 16.3 g/dL (12.0-18.0); LYMPH # 2.3 K/uL (1.0-4.3); LYMPH % 16.7 % (20.0-40.0); MEAN CELL VOLUME 99.8 fL (80.0-94.0); MEAN CORPUSCULAR HEMOGLOBIN 33.6 pg (27.0-31.0); MEAN CORPUSCULAR HGB CONC 33.6 g/dL (33.0-37.0); MEAN PLATELET VOLUME 9.4 fL (7.2-11.7); MONO # 0.8 K/uL (0.0-0.8); MONO % 5.7 % (0.0-10.0); NEUT # 10.3 K/uL (1.8-7.0); NEUT % 76.3 % (50.0-75.0); RBC 4.85 Mil/uL (4.40-5.90); RED CELL DISTRIBUTION WIDTH 13.7 % (11.5-14.5); WHITE BLOOD COUNT 13.5 K/uL (4.8-10.8)
[2018-04-21 14:40] LABS: SQUAMOUS EPITHIAL < 1 /hpf (0-5); URINE BILIRUBIN NEGATIVE (NEGATIVE); URINE BLOOD NEGATIVE (NEGATIVE); URINE CLARITY Clear (Clear); URINE COLOR Yellow (YELLOW); URINE GLUCOSE (UA) NORMAL (Normal); URINE LEUKOCYTE ESTERASE NEG Leu/uL (Negative); URINE PROTEIN NEGATIVE (NEGATIVE); URINE UROBILINOGEN NORMAL mg/dL (0.2-1.0)
[2018-04-21 14:52] LABS: ALB/GLOB RATIO 1.4 (1.0-2.1); ALBUMIN 4.5 g/dL (3.5-5.0); ALT/SGPT 26 U/L (21-72); AST/SGOT 31 U/L (17-59); BLOOD UREA NITROGEN 10 mg/dL (9-20); CALCIUM 9.7 mg/dl (8.6-10.4); GFR NON-AFRICAN AMERICAN > 60
[2018-04-21 16:05] LABS: BARBITURATES, UR NEGATIVE (NEGATIVE); BENZODIAZEPINES, UR NEGATIVE (NEGATIVE); PHENCYCLIDINE, UR NEGATIVE (NEGATIVE)
[2018-04-21 17:09] LABS: OPIATES, UR POSITIVE (NEGATIVE)
--- NOTE | 2018-04-21 17:38 | PCM.BM ---
<YanetMaribell - Last Filed: 04/21/18 17:36> Treatment Plan Problems - Problems identified on initial assessmt Potential for alcohol withdrawal Date Initiated: 04/21/18 Time Initiated: 17:37 Assessment reference: NA Status: Active Potential for opiate withdrawal Date Initiated: 04/21/18 Time Initiated: 17:37 Assessment reference: NA Status: Active Treatment assets and liabiliti Patient Assests: self-reliant, ADL independent, negotiates basic needs, cogn itively intact Patient Liabilities: substance abuse (alcohol,opiates) - Milieu Protocol Maintain good personal hygiene: daily Encourage regular showers, daily Remind patient to perform daily oral care, daily Assist patient to perform ADL's Conduct patient checks and document Observation sheet: Q15 minutes Maintain personal safety: every shift Educate patient to report safety concerns to staff, every shift Monitor environment for contraband/sharps Medication safety: Monitor for expected outcome, potential side effects: every shift, Assess barriers to learning: every shift, Assess readiness for medication education: every shift <Radha Nettles - Last Filed: 04/22/18 11:12> Family Contact Family involvement: Famliy/SO not involved - Goals for Treatment Patient goals for treatment: Complete detox and discuss aftercare options with counseling staff. Discharge/Continuing Care - Education Needs Education Needs: Patient Medication, Patient Diagnosis/Disease Process, Patient Coping Skills, Patient Anger Management skills, Patient Placement options, Patient Community resources - Discharge Discharge Criteria: No longer exhibiting s/s of withdrawal, Reduction of target symptoms Discharge to:: Other - Additional Comments 04/22/18 11:12 Aftercare TBD as pt. is unsure as of this writing. - Treatment Team Participation Discussed with Family/SO: No Was Patient/Family/SO present at Treatment Team Meeting: Yes
--- NOTE | 2018-04-22 08:30 | PCM.PSYCH ---
Initial Psychiatric Evaluation - Initial Psychiatric Evaluation Type of Admission: Voluntary Legal Status: Capacity Chief Complaint (in patient's own words): "Alcohol" History of Present Illness and Precipitating Events: The pt is seen, chart reviewed, case discussed He is a 57 y/o WM, single, no child, homeless, currently unemployed He drinks "a case" of beer for many years He also used 3 bags heroin recently He was in detox 10 times and rehab 2-3 times. Used methadone in [place] for a long time but quit 5 years ago, dose was 90 mg He used klonopin too Past psych hx: ANxiety Family psych hx: Same, anxiety Medical hx: none Current Medications: Active Medications Generic Name Dose Route Start Last Admin Trade Name Freq PRN Reason Stop Dose Admin Chlordiazepoxide 50 mg 04/21/18 18:00 04/22/18 06:05 Librium PO Not Given Q6 KALLI Hydroxyzine HCl 25 mg 04/21/18 17:57 04/21/18 21:25 Atarax PO 25 mg Q6 PRN Administration Anxiety Trazodone HCl 50 mg 04/21/18 17:56 04/21/18 21:25 Desyrel PO 50 mg HS PRN Administration Insomnia Past Psychiatric History - Past Psychiatric History Previous Treatment History: Intensive Outpatient Pertinent Medical Hx (Current Medical&Sleep Prob, Allergies): Allergies Allergy/AdvReac Type Severity Reaction Status Date / Time No Known Allergies Allergy Verified 04/21/18 13:07 Paxil 04/21/18 Review of Systems - Neurological Neurological: UNREMARKABLE ( ) - Psychiatric Psychiatric: Abnormal Sleep Pattern, Anhedonia, Anxiety, Behavioral Changes, Difficulty Concentrating. absent: Hallucinations, Homicidal Ideation, Paranoia, Suicidal Ideation Mental Status Examination - Personal Presentation Personal Presentation: Looks stated age - Affect Affect: Constricted - Motor Activity Motor Activity: Calm - Reliability in Providing Information Reliability in Providing Information: Good - Speech Speech: Organized - Mood Mood: Depressed, Anxious - Formal Thought Process Formal Thought Process: No Impairment - Cognitive Functions Orientation: Person, Place, Situation, Time Sensorium: Alert Attention/Concentration: Easily distracted Estimate of Intelligence: Average Judgement: Intact, as evidence by: Insight regarding need for hospitalization Memory: Recent intact, as evidence by: Ability to recall events of the day, Remote intact, as evidenced by: Abilit to recall sig. life events - Risk Risk: Withdrawal, Diminished functioning - Strength & Assets Inventory Strength & Assets Inventory: Employment history, Cooperative - Limitations Limitations: Living alone, Other DSM 5 DX - DSM 5 DSM 5 Diagnosis: Alcohol withdrawal Alcohol use d/o - severe opioid use d/o -severe KI - Recommended/Plan of Treatment Treatment Recommendations and Plan of Treatment: Taper with librium and methadone As needed medications Gabapentin for augmentation if needed All risks, benefits and alternatives of medications, including no medications, discussed and the patient understood and agreed. Attend groups and activities Supportive therapy and psychoeducation [facility] for abstinence CBT for relapse prevention Encourage MAT Refer to rehab or IOP Attend self-help groups as well NH for smoking cessation and patch if needed 34 min Projected ELOS: 4 days - Smoking Cessation Smoking Cessation Initiated: Yes
[2018-04-22] MEDS: Multiple Vitamins Tab PO SCH (10:37)
[2018-04-23] MEDS: Multiple Vitamins Tab PO SCH (10:34)
--- NOTE | 2018-04-23 12:28 | PCM.PYCHPN ---
Psychiatric Progress Note - Psychiatric Progress Note Patient seen today, length of contact: 15 min Medication Change: Yes Medical Record Reviewed: Yes Mental Status Examination - Homicidal Ideation Homicidal Ideation: No
[2018-04-23] MEDS: Magnesium Hydroxide Susp 30 ml UD PO PRN (14:49)
--- NOTE | 2018-04-24 08:49 | RAD ---
Chest x-ray two views HISTORY: Rehab placement. Comparison: None available. Findings: No focal infiltrate or effusion. Heart size within normal limits. Impression: No focal infiltrate or effusion.
[2018-04-24] MEDS: Multiple Vitamins Tab PO SCH (09:51)
--- NOTE | 2018-04-24 22:57 | PCM.PYCHPN ---
Psychiatric Progress Note - Psychiatric Progress Note Patient seen today, length of contact: 15 min Patient Chief Complaint: I am feeling little better but still have some anxiety. Problems Identified/Issues Discussed: Patient seen, chart reviewed, case discussed with the staff. Issues related to illness and treatment were discussed with the patient and staff. Reported compliant with treatment with no adverse effects. Tolerating treatment very well. Awake, alert and oriented x3. Calm and cooperative with good eye contact. Mood reported as okay. Affect appropriate. Feeling little better.Also reported feeling anxious at times. Patient was started on Paxil. Patient refused to take Paxil even after education. Offered gabapentin. Risks and benefits of gabapentin were discussed with the patient. Patient understood and agreed. We will start gabapentin 300 mg twice a day. Needs more time for stabilization. Aftercare discussed with the patient. Denied any delusions, auditory or visual hallucinations, suicidal ideations or homicidal ideations at the time of evaluation. Medical Problems: None reported Diagnostic Results: Patient seen, chart reviewed, case discussed with the staff. Issues related to illness and treatment were discussed with the patient and staff. Reported compliant with treatment with no adverse effects. Tolerating treatment very well. Awake, alert and oriented x3. Calm and cooperative with good eye contact. Mood reported as okay. Affect appropriate. Feeling little better. Needs more time for stabilization. Aftercare discussed with the patient. Denied any delusions, auditory or visual hallucinations, suicidal ideations or homicidal ideations at the time of evaluation. DSM 5 Symptoms Update: Some improvement with treatment Medication Change: No Medical Record Reviewed: Yes Mental Status Examination - Cognitive Function Orientation: Person, Place, Situation, Time Memory: Intact Attention: WNL Concentration: WNL Association: [facility] Fund of Knowledge: [facility] Decription of patient's judgement and insights: Fair - Mood Mood: Anxious - Affect Affect: Other (Appropriate) - Speech Speech: Appropriate - Formal Thought Process Formal Thought Process: No Impairment Psychotic Thoughts and Behaviors: None - Suicidal Ideation Suicidal Ideation: No - Homicidal Ideation Homicidal Ideation: No Goal/Treatment Plan - Goal/Treatment Plan Need for Continued Stay: Remain at risks for inpatient hospitalization, Discharge may exacerbated symptoms, Severe functional impairment Progress Toward Problem(s) and Goals/Treatment Plan: Patient education. Supportive therapy. CBT for relapse prevention. [place] for abstinence. We will start gabapentin 300 mg twice a day. Continue treatment as before. Estimated Date of D/C: 04/26/18 - Smoking Cessation Smoking Cessation Initiated: Yes
[2018-04-25] MEDS: Multiple Vitamins Tab PO SCH (10:26)
[2018-04-25] MEDS: Magnesium Hydroxide Susp 30 ml UD PO PRN (16:04)
--- NOTE | 2018-04-26 08:50 | PCM.PYCHDC ---
Mental Status Examination - Mental Status Examination Orientation: Person, Place, Situation, Time Memory: Intact Mood: Anxious Affect: Constricted Speech: Appropriate Attention: WNL Concentration: WNL Association: WNL Fund of Knowledge: WNL Formal Thought Process: No Impairment Suicidal Ideation: No Current Homicidal Ideation?: No Discharge Summary - Discharge Note Consultations:: List each consultation separately and include: 1. Reason for request. 2. Findings. 3. Follow-up Summary of Hospital Course include:: 1. Description of specific treatment plan utilized for patients during their course of treatmen. 2. Summarize the time- course for resolution of acute symptoms and/or regressed behaviors. 3. Describe issues identified and worked on during hospitalization. 4. Describe medication utilized. 5. Describe medical problems identified and treated. 6. Reassessment of suicide risk Summary of Hospital Course: The pt is seen, chart reviewed, case discussed He is a 57 y/o WM, single, no child, homeless, currently unemployed He drinks "a case" of beer for many years He also used 3 bags heroin recently He was in detox 10 times and rehab 2-3 times. Used methadone in [place] for a long time but quit 5 years ago, dose was 90 mg He used klonopin too Past psych hx: ANxiety Family psych hx: Same, anxiety Medical hx: none Hospital course: The pt was admitted and started on treatment with psychotherapy, support, psychoeducation and medications. ND and CBT used. The pt attended groups and activities, as well as milieu therapy. All the risks and benefits of medications are discussed and the patient understood and agreed. The pt improved with the treatments provided. After care discussed with the patient. He went to [facility] - Final Diagnosis (DSM 5) Condition upon Discharge: GOOD DSM 5: Alcohol withdrawal Alcohol use d/o - severe opioid use d/o -severe KI Disposition: HOME/ ROUTINE Follow-up Treatment Plan: Continue below medications after discharge. Follow after care plan as discussed. Use relapse prevention skills Return to ER or call 911 if suicidal, homicidal or symptoms relapse. Stay away from stress, alcohol and drugs. See primary doctor regularly and get labs. Prescriptions/Medication Reconciliation: Gabapentin [Neurontin] 300 mg PO BID #60 cap hydrOXYzine HCl [Atarax] 25 mg PO BID PRN #60 tab PRN Reason: Anxiety traZODone [Desyrel] 50 mg PO HS PRN #30 tab PRN Reason: Insomnia
[2018-04-26] MEDS: Multiple Vitamins Tab PO SCH (09:38)
[2018-04-26 11:53] VITALS: BP 144/84; PULSE 78; RESP 18; TEMP 98; O2SAT 98
== END 2018-04-26 11:30 | disposition home or self-care (01) | DRG 745 ==
LOC: C.ER 12:22 → C.7D 17:09
PROVIDERS: ADMIT Psychiatry & Neurology Psychiatry; ATTEND Psychiatry & Neurology Psychiatry
PROC: HZ2ZZZZ Detoxification Services for Substance Abuse Treatment (ICD-10-PCS; principal; 2018-04-21)
PROC: HZ59ZZZ Individual Psychotherapy for Substance Abuse Treatment, Supportive (ICD-10-PCS; 2018-04-21)
PROC: GZ3ZZZZ Medication Management (ICD-10-PCS; 2018-04-21)
PROC: HZ81ZZZ Medication Management for Substance Abuse Treatment, Methadone Maintenance (ICD-10-PCS; 2018-04-21)
PROC: HZ80ZZZ Medication Management for Substance Abuse Treatment, Nicotine Replacement (ICD-10-PCS; 2018-04-21)
PROC: HZ46ZZZ Group Counseling for Substance Abuse Treatment, Psychoeducation (ICD-10-PCS; 2018-04-21)
DX: F10.230 Alcohol dependence with withdrawal, uncomplicated (principal); F11.10 Opioid abuse, uncomplicated; F41.1 Generalized anxiety disorder; F17.210 Nicotine dependence, cigarettes, uncomplicated; Y90.6 Blood alcohol level of 120-199 mg/100 ml

== ENCOUNTER 2018-07-13 07:59 | Emergency (ER) | payer OTHER ==
[2018-07-13 07:59] VITALS: BMI 23.6
[2018-07-13 08:05] VITALS: BP 129/82; PULSE 93; RESP 18; TEMP 97.5; O2SAT 97
[2018-07-13] MEDS ORDERED: Lidocaine Hydrochloride 5 ML INJ ONE (08:28)
--- NOTE | 2018-07-13 08:53 | C.PDOC ---
History Of Present Illness 57 y/o male presents to the ER for evaluation of a infected sebaceous cysts on the left side of his chin/face. Patient denies having fever, chills, and drainage from the cysts. Time Seen by Provider: 07/13/18 08:04 Chief Complaint (Nursing): Abnormal Skin Integrity History Per: Patient History/Exam Limitations: no limitations Onset/Duration Of Symptoms: Days Current Symptoms Are (Timing): Still Present Severity: Moderate Past Medical History Reviewed: Historical Data, Nursing Documentation, Vital Signs Vital Signs: Last Vital Signs Temp 97.5 F L 07/13/18 08:03 Pulse 93 H 07/13/18 08:03 Resp 18 07/13/18 08:03 BP 129/82 07/13/18 08:03 Pulse Ox 97 07/13/18 08:03 - Medical History PMH: Anxiety, Back Problems Other Surgeries: Hx of surgeries - [facility] Procedures DETOXIFICATION SERVICES FOR SUBSTANCE ABUSE TREATMENT (04/21/18) GROUP MACHINE TOOL DRESSER FOR SUBSTANCE ABUSE TREATMENT, PSYCHOEDUCATION (04/21/18) INDIV PSYCHOTHERAPY FOR SUBSTANCE ABUSE TREATMENT, SUPPORT (04/21/18) INDIV PSYCHOTHERAPY FOR SUBSTANCE ABUSE, COGNITIV BEHAVIORAL (05/19/17) INDIV PSYCHOTHERAPY FOR SUBSTANCE ABUSE, PSYCHOEDUCATION (05/19/17) MEDICATION MANAGEMENT (04/21/18) MEDS MGMT FOR SUBSTANCE ABUSE TREATMENT, METHADONE MAINT (04/21/18) MEDS MGMT FOR SUBSTANCE ABUSE TREATMENT, NICOTINE REPLACE (04/21/18) Family History: States: No Known Family Hx - Social History Hx Tobacco Use: Yes Hx Alcohol Use: Yes Hx Substance Use: No - Immunization History Hx Tetanus Toxoid Vaccination: Yes Hx Influenza Vaccination: No Hx Pneumococcal Vaccination: No Review Of Systems Except As Marked, All Systems Reviewed And Found Negative. Constitutional: Negative for: Fever, Chills Skin: Positive for: Other (sebaceous cysts to face) Physical Exam - Physical Exam Appears: Non-toxic, No Acute Distress Skin: Normal Color, Warm, Dry, Other (2 sebaceous cysts to left chin, 1 infected cyst) Head: Atraumatic, Normacephalic Eye(s): bilateral: Normal Inspection Nose: Normal Oral Mucosa: Moist Neck: Supple Chest: Symmetrical Neurological/Psych: Oriented x3, Normal Speech ED Course And Treatment O2 Sat by Pulse Oximetry: 97 (RA) Pulse Ox Interpretation: Normal Progress Note: Treated with keflex 500 mg PO. DSD applied. Patient advised to follow up at clinic Reassessment Condition: Improved - Incision & Drainage Of Abscess Anesthesia: Lidocaine 1% Prep Used: Sterile Water, Betadine Procedure: Incised W/Scalpel Blade#: (11), Drained Pus, Irrigated Cavity W/Saline, Probed To Break Up Loculations, Packed W/Gauze, Cultures Obtained And Sent To Lab Medical Decision Making Medical Decision Making: Plan: -Incision & Drainage Disposition - Disposition Referrals: [facility] [Outside] [facility] [Outside] Disposition: HOME/ ROUTINE Disposition Time: 09:15 Condition: STABLE Additional Instructions: warm compresses to affected area Follow up with dermatology for further evaluation Prescriptions: Cephalexin [cephalexin] 500 mg PO Q8 #15 cap Instructions: Boil, Abscess Incision and Drainage (DC) Forms: [email or web address] (Upper [place]) - Clinical Impression Clinical Impression: Abscess - PA / DIRECTOR EXTERNAL COMMUNICATIONS / Resident Statement MD/DO has reviewed & agrees with the documentation as recorded. - Scribe Statement The provider has reviewed the documentation as recorded by the Sharitaibe Romario Muniz Provider Attestation All medical record entries made by the Scribe were at my direction and personall y dictated by me. I have reviewed the chart and agree that the record accurately reflects my personal performance of the history, physical exam, medical decision making, and the department course for this patient. I have also personally directed, reviewed, and agree with the discharge instructions and disposition.
== END 2018-07-13 09:12 | disposition home or self-care (01) ==
LOC: C.ER 07:59
DX: L02.01 Cutaneous abscess of face (principal); Z72.0 Tobacco use